=== PATIENT | female | born 1975 | race Caucasian/White ===

== ENCOUNTER 2018-08-27 10:49 | Emergency (ER) | payer SELFPAY ==
[~2018-08-27] VITALS: Ht 167.6 cm; Wt 79.4 kg
--- OUTSIDE RECORDS SUMMARY | 2018-08-27 10:51 | XMS REPORT | Clinical Summary ---
Author Author [facility] Organization [facility] Address Unknown Phone Unavailable Care Team Providers Care Manufacturing Quality Inspector Name Role Phone Jhonny Fulton MD PCP Allergies Active Allergy Reactions Severity Noted Date Comments Penicillins Rash Low 09/20/2017 Current Medications Prescription Sig. Disp. Refills Start End Date Status Date cholecalciferol, vitamin Take 2,000 Units by mouth Active D3, (VITAMIN D3) 2,000 daily. unit capsule capsule escitalopram (LEXAPRO) 10 Take 1 tablet (10 mg 30 tablet 0 09/20/20 10/20/20 Discontin MG tablet total) by mouth daily for 17 17 ued 90 days. escitalopram (LEXAPRO) 20 Take 1 tablet (20 mg 30 tablet 2 10/20/20 01/19/20 MG tablet total) by mouth daily for 17 18 90 days. Active Problems Problem Noted Date Depression with anxiety 09/20/2017 Overweight (BMI 25.0-29.9) 09/20/2017 Ineffective coping 09/20/2017 Encounters Date Type Specialty Care Team Description 02/01/2018 Refill Internal Medicine Jhonny Fulton MD 10/20/2017 Office Visit Internal Medicine Jhonny Fulton, Depression with anxiety (Primary Dx); Ineffective coping 09/20/2017 Office Visit Internal Medicine Jhonny Fulton Depression with anxiety (Primary Dx); Ineffective coping after 08/26/2017 Family History Medical History Relation Name Comments No Known Problems Brother No Known Problems Father Diabetes Mother Hypertension Mother Breast cancer Paternal Grandmother Relation Name Status Comments Brother Alive Father Alive Mother Alive Paternal Grandmother Social History Tobacco Use Types Packs/Day Years Used Date Former Smoker Cigarettes 0.25 8 Quit: 09/20/2002 Smokeless Tobacco: Never Used Alcohol Use Drinks/Week oz/Week Comments Yes 2 Standard 1.2 drinks or equivalent Sex Assigned at Date Recorded Not on file Last Filed Vital Signs Vital Sign Reading Time Taken Blood Pressure 134/88 10/20/2017 10:10 AM SUPERVISOR SHUTTLE FITTING Pulse 69 10/20/2017 10:10 AM SUPERVISOR SHUTTLE FITTING Temperature 36.8 C (98.3 F) 10/20/2017 10:10 AM SUPERVISOR SHUTTLE FITTING Respiratory Rate - - Oxygen Saturation 97% 10/20/2017 10:10 AM SUPERVISOR SHUTTLE FITTING Inhaled Oxygen - - Concentration Weight 74.8 kg (165 lb) 10/20/2017 10:10 AM SUPERVISOR SHUTTLE FITTING Height 162.6 cm (5' 4") 10/20/2017 10:10 AM SUPERVISOR SHUTTLE FITTING Body Mass Index 28.32 10/20/2017 10:10 AM SUPERVISOR SHUTTLE FITTING Plan of Treatment Health Maintenance Due Date Last Done Comments CERVICAL CANCER SCREENING 1997 INFLUENZA VACCINE 05/23/2018 Procedures Procedure Name Priority Date/Time Associated Diagnosis Comments CBC WITH PLATELET AND Routine 10/20/2017 Depression with anxiety Results for this DIFFERENTIAL 10:33 AM SUPERVISOR SHUTTLE [employer]TING procedure are in the results section. THYROID STIMULATING Routine 10/20/2017 Depression with anxiety Results for this HORMONE 10:33 AM SUPERVISOR SHUTTLE [employer]TING procedure are in the results section. COMPREHENSIVE METABOLIC Routine 10/20/2017 Depression with anxiety Results for this PANEL 10:33 AM SUPERVISOR SHUTTLE FITTING procedure are in the results section. after 08/26/2017 Results * CBC with platelet and differential (10/20/2017 10:33 AM) WBC 6.7 3.8 - 10.8 Thousand/uL [facility] [place] RBC 4.90 3.80 - 5.10 Million/uL [facility] [place] HGB 13.6 11.7 - 15.5 g/dL [facility] [place] HCT 41.8 35.0 - 45.0 % [facility] [place] MCV 85.3 80.0 - 100.0 fL [facility] [place] MCH 27.8 27.0 - 33.0 pg [facility] [place] MCHC 32.5 32.0 - 36.0 g/dL [facility] [place] RDW 12.5 11.0 - 15.0 % [facility] [place] Platelet count 287 140 - 400 Thousand/uL [facility] [place] MPV 10.9 7.5 - 12.5 fL [facility] [place] Neutrophils, absolute 4,750 1,500 - 7,800 cells/uL [facility] [place] Lymphocytes, absolute 1,132 850 - 3,900 cells/uL [facility] [place] Monocytes, absolute 623 200 - 950 cells/uL [facility] [place] Eosinophils, absolute 107 15 - 500 cells/uL [facility] [place] Basophils, absolute 87 0 - 200 cells/uL [facility] [place] Neutrophils 70.9 % [facility] [place] Lymphocytes 16.9 % [facility] [place] Monocytes 9.3 % [facility] [place] Eosinophils 1.6 % [facility] [place] Basophils + RC 1.3 % [facility] [place] Other Results Text Performing Organization Information: Site ID: [id number] Name: [employer] [facility] Address: [address] [place] [phone] Director: Chikis Whitt MD Performing Organization Address City/[facility] Phone Number [facility] [address] [address] * Thyroid stimulating hormone (10/20/2017 10:33 AM) TSH 0.82 mIU/L [facility] Comment: [place] Reference Range > or=20 Years0.40-4.50 Ranges First trimester0.26-2.66 Second trimester 0.55-2.73 Third trimester0.43-2.91 Other Results Text Performing Organization Information: Site ID: [id number] Name: [employer] [facility] Address: [address] [place] [phone] Director: Chikis Whitt MD Performing Organization Address [facility] Phone Number [facility] [address] [phone] * Comprehensive metabolic panel (10/20/2017 10:33 AM) Glucose 109 (H) 65 - 99 mg/dL [facility] Comment: [place] Fasting reference interval For someone without known diabetes, a glucose value between 100 and 125 mg/dL is consistent with prediabetes and should be confirmed with a follow-up test. BUN, whole blood 10 7 - 25 mg/dL [facility] [place] Creatinine 0.77 0.50 - 1.10 mg/dL [facility] [place] EGFR Non-Afr. Qatari 96 > OR=60 mL/min/1.73m2 [facility] [place] EGFR 111 > OR=60 mL/min/1.73m2 [facility] [place] BUN/creatinine ratio NOT APPLICABLE 6 - 22 (calc) [facility] [place] Sodium 139 135 - 146 mmol/L [facility] [place] Potassium 4.2 3.5 - 5.3 mmol/L [facility] [place] Chloride 104 98 - 110 mmol/L [facility] [place] CO2 27 20 - 31 mmol/L [facility] [place] Calcium 9.5 8.6 - 10.2 mg/dL [facility] [place] Protein 7.2 6.1 - 8.1 g/dL [facility] Albumin, S 4.6 3.6 - 5.1 g/dL [facility] [place] Globulin, total 2.6 1.9 - 3.7 g/dL (calc) [facility] [place] Albumin/globulin ratio 1.8 1.0 - 2.5 (calc) [facility] [place] Total bilirubin 0.5 0.2 - 1.2 mg/dL [facility] Alkaline phosphatase 85 33 - 115 U/L [facility] AST 15 10 - 30 U/L [facility] ALT 20 6 - 29 U/L [facility] [place] Other Results Text Performing Organization Information: Site ID: [id number] [facility]: [facility] Address: [address] [place] [id number] Director: Chikis Whitt MD Performing Organization Address City/State/Zipcode Phone Number [facility] [address] [address] after 08/26/2017
[2018-08-27] MEDS ORDERED: CEFTRIAXONE SOD 1 GM VIAL IM ONE (12:15)
[2018-08-27] MEDS ORDERED: ONDANSETRON HCL 4 MG ORAL DISINTEGRATING TAB PO ONE (12:15)
== END 2018-08-27 13:10 | disposition home or self-care (01) ==
LOC: FSED 10:49
DX: M54.5 Low back pain (principal); R10.30 Lower abdominal pain, unspecified; N30.90 Cystitis, unspecified without hematuria
CPT/HCPCS: 81003; 87086; 87186; 99283; J0696; Q0162

== ENCOUNTER 2018-09-05 12:06 | Emergency (ER) | payer SELFPAY ==
[~2018-09-05] VITALS: Ht 162.6 cm; Wt 72.6 kg
--- OUTSIDE RECORDS SUMMARY | 2018-09-05 12:09 | XMS REPORT | Clinical Summary ---
Author Author [facility] Organization [facility] Address Unknown Phone Unavailable Care Team Providers Care Assistant Federal Public Defender Name Role Phone Jhonny Fulton MD PCP Allergies Comments Active Allergy Reactions Severity Noted Date Penicillins Rash Low 09/20/2017 Medications End Date Status Medication Sig Dispensed Refills Start Date Active cholecalciferol, vitamin Take 2,000 0 D3, (VITAMIN D3) 2,000 Units by unit capsule capsule mouth daily. 10/20/2017 Discontinued escitalopram (LEXAPRO) 10 Take 1 tablet 30 tablet 0 201 MG tablet (10 mg total) 7 by mouth daily for 90 days. 01/18/2018 escitalopram (LEXAPRO) 20 Take 1 tablet 30 tablet 2 201 MG tablet (20 mg total) 7 by mouth daily for 90 days. Active Problems Problem Noted Date Depression with anxiety 09/20/2017 Overweight (BMI 25.0-29.9) 09/20/2017 Ineffective coping 09/20/2017 Encounters Care Team Description Date Type Specialty Jhonny Fulton MD 02/01/2018 Refill Internal Medicine Jhonny Fulton MD Depression with anxiety (Primary Dx); Ineffective coping 10/20/2017 Office Visit Internal Medicine Jhonny Fulton MD Depression with anxiety (Primary Dx); Ineffective coping 09/20/2017 Office Visit Internal Medicine after 09/04/2017 Family History Medical History Relation Name Comments No Known Problems Brother No Known Problems Father Diabetes Mother Hypertension Mother Breast cancer Paternal Grandmother Relation Name Status Comments Brother Alive Father Alive Mother Alive Paternal Grandmother Social History Date Tobacco Use Types Packs/Day Years Used Quit: 09/20/2002 Former Smoker Cigarettes 0.25 8 Smokeless Tobacco: Never Used Alcohol Use Drinks/Week oz/Week Comments Yes 2 Standard 1.2 drinks or equivalent Sex Assigned at Date Recorded Not on file Industry Job Start Date Occupation Not on file Not on file Not on file Travel End Travel History Travel Start No recent travel history available. Last Filed Vital Signs Time Taken Vital Sign Reading 10/20/2017 10:10 AM LUBRICATING ENGINEER Blood Pressure 134/88 10/20/2017 10:10 AM LUBRICATING ENGINEER Pulse 69 10/20/2017 10:10 AM LUBRICATING ENGINEER Temperature 36.8 C (98.3 F) - Respiratory Rate - 10/20/2017 10:10 AM LUBRICATING ENGINEER Oxygen Saturation 97% - Inhaled Oxygen - Concentration 10/20/2017 10:10 AM LUBRICATING ENGINEER Weight 74.8 kg (165 lb) 10/20/2017 10:10 AM LUBRICATING ENGINEER Height 162.6 cm (5' 4") 10/20/2017 10:10 AM LUBRICATING ENGINEER Body Mass Index 28.32 Plan of Treatment Health Maintenance Due Date Last Done Comments MMR VACCINES (1 of - 1977 Standard series) VARICELLA VACCINES (1 of 1989 2 - 2-dose adolescent series) CERVICAL CANCER SCREENING 1997 INFLUENZA VACCINE 05/23/2018 HEPATITIS B VACCINES Aged Out No longer eligible based on patient's age to complete this topic IPV VACCINES Aged Out No longer eligible based on patient's age to complete this topic MENINGOCOCCAL VACCINE Aged Out No longer eligible based on patient's age to complete this topic Procedures Comments Procedure Name Priority Date/Time Associated Diagnosis CBC WITH PLATELET AND Routine 10/20/2017 Depression with anxiety DIFFERENTIAL 10:33 AM LUBRICATING ENGINEER THYROID STIMULATING Routine 10/20/2017 Depression with anxiety HORMONE 10:33 AM LUBRICATING ENGINEER COMPREHENSIVE METABOLIC Routine 10/20/2017 Depression with anxiety PANEL 10:33 AM LUBRICATING ENGINEER after 09/04/2017 Results * CBC with platelet and differential (10/20/2017 10:33 AM LUBRICATING ENGINEER) WBC 3.8 - 10.8 Thousand/uL [facility] [place] RBC 3.80 - 5.10 Million/uL [facility] [place] HGB 11.7 - 15.5 g/dL [facility] [place] HCT 35.0 - 45.0 % [facility] [place] MCV 80.0 - 100.0 fL [facility] [place] MCH 27.0 - 33.0 pg [facility] [place] MCHC 32.0 - 36.0 g/dL [facility] RDW 11.0 - 15.0 % [facility] [place] Platelet count 140 - 400 Thousand/uL [facility] [place] MPV 7.5 - 12.5 fL [facility] [place] Neutrophils, absolute 1,500 - 7,800 cells/uL [facility] [place] Lymphocytes, absolute 850 - 3,900 cells/uL [facility] [place] Monocytes, absolute 200 - 950 cells/uL [facility] [place] Eosinophils, absolute 15 - 500 cells/uL [facility] [place] Basophils, absolute 0 - 200 cells/uL [facility] [place] Neutrophils % [facility] [place] Lymphocytes % [facility] [place] Monocytes % [facility] [place] Eosinophils % [facility] [place] Basophils + RC % [facility] [place] Resulting Agency Comment Performing Organization Information: Site ID: [id number] Name: [facility] Address: [address] [place] [phone] Director: Chikis Whitt MD Performing Organization Address City/[facility] Phone Number [facility] [place] [address] * Thyroid stimulating hormone (10/20/2017 10:33 AM LUBRICATING ENGINEER) TSH Comment: mIU/L [facility] Range > or=20 Years0.40-4.50 Ranges First trimester0.26-2.66 Second trimester 0.55-2.73 Third trimester0.43-2.91 Resulting Agency Comment Performing Organization Information: Site ID: [id number] Name: [employer] [facility] Address: [address] [place] [phone] Director: Chikis Whitt MD Performing Organization Address [facility] [place] [address] * Comprehensive metabolic panel (10/20/2017 10:33 AM LUBRICATING ENGINEER) Glucose (H) 65 - 99 mg/dL [facility] Comment: [place] Fasting reference interval For someone without known diabetes, a glucose value between 100 and 125 mg/dL is consistent with prediabetes and should be confirmed with a follow-up test. BUN, whole blood 7 - 25 mg/dL [facility] [place] Creatinine 0.50 - 1.10 mg/dL [facility] [place] EGFR Non-Afr. Martiniquais > OR=60 mL/min/1.73m2 [facility] [place] EGFR > OR=60 mL/min/1.73m2 [facility] [employer] [place] BUN/creatinine ratio 6 - 22 (calc) [facility] [place] Sodium 135 - 146 mmol/L [facility] Potassium 3.5 - 5.3 mmol/L [facility] Chloride 98 - 110 mmol/L [facility] CO2 20 - 31 mmol/L [facility] Calcium 8.6 - 10.2 mg/dL [facility] [place] Protein 6.1 - 8.1 g/dL [facility] [place] Albumin, S 3.6 - 5.1 g/dL [facility] [place] Globulin, total 1.9 - 3.7 g/dL (calc) [facility] Albumin/globulin ratio 1.0 - 2.5 (calc) [facility] Total bilirubin 0.2 - 1.2 mg/dL [facility] Alkaline phosphatase 33 - 115 U/L [facility] AST 10 - 30 U/L [facility] ALT 6 - 29 U/L [facility] [place] Resulting Agency Comment Performing Organization Information: Site ID: [id number] [facility]: [facility] Address: [address] [place] [phone] Director: Chikis Whitt MD Performing Organization Address City/State/Zipcode Phone Number [employer] [place] [address] [place], [place] [phone] after 09/04/2017 Advance Directives Patient has advance care planning documents on file. For more information, andrzej wilkins contact: Pradeep Saldivar [address] [place] [address]
[2018-09-05] MEDS ORDERED: CEFTRIAXONE SOD 1 GM VIAL IM ONE (12:45)
[2018-09-05 13:27] VITALS: BP 152/80
== END 2018-09-05 13:30 | disposition home or self-care (01) ==
LOC: FSED 12:06
DX: N10 Acute pyelonephritis (principal); R11.0 Nausea
CPT/HCPCS: 81003; 87086; 87186; 99282; J0696

== ENCOUNTER 2019-01-09 10:10 | Emergency (ER) | payer SELFPAY ==
[~2019-01-09] VITALS: Ht 162.6 cm; Wt 72.6 kg
--- OUTSIDE RECORDS SUMMARY | 2019-01-09 10:13 | XMS REPORT | Clinical Summary ---
Author Author [facility] Address Unknown Phone Unavailable Care Team Providers Care Painter Shipyard Name Role Phone Jhonny Fulton MD PCP Allergies Comments Active Allergy Reactions Severity Noted Date Penicillins Rash Low 09/20/2017 Medications End Date Status Medication Sig Dispensed Refills Start Date Active cholecalciferol, vitamin Take 2,000 0 D3, (VITAMIN D3) 2,000 Units by unit capsule capsule mouth daily. 01/18/2018 escitalopram (LEXAPRO) 20 Take 1 tablet 30 tablet 2 MG tablet (20 mg total) 7 by mouth daily for 90 days. Active Problems Problem Noted Date Depression with anxiety 09/20/2017 Overweight (BMI 25.0-29.9) 09/20/2017 Ineffective coping 09/20/2017 Encounters Care Team Description Date Type Specialty Jhonny Fulton MD 02/01/2018 Refill Internal Medicine after 01/08/2018 Family History Medical History Relation Name Comments [...] travel history available. Last Filed Vital Signs Not on file Plan of Treatment Health Maintenance Due Date Last Done Comments CERVICAL CANCER SCREENING 1997 INFLUENZA VACCINE 05/23/2018 Results Not on fileafter 01/08/2018 Advance Directives Patient has advance care planning documents on file. For more information, andrzej wilkins contact: Pradeep Saldivar [address] [place] [address]
== END 2019-01-09 11:10 | disposition left against medical advice (07) ==
LOC: FSED 10:10
DX: R30.0 Dysuria (principal)